=== PATIENT | male | born 1990 | race Two or more races ===

== ENCOUNTER 2020-11-02 05:53 | Emergency (ER) | payer OTHER ==
[~2020-11-02] VITALS: Ht 167.6 cm; Wt 65.0 kg
[2020-11-02] MEDS ORDERED: SODIUM CHLORIDE 0.9% 1,000ML IVBOLUS ONE (06:00)
[2020-11-02 06:34] LABS: BASOPHILS % (AUTO) 0 % (0-1); EOSINOPHILS % (AUTO) 0 % (1-7); LYMPHOCYTES % (AUTO) 10 % (22-44); MEAN CORPUSCULAR HEMOGLOBIN 29.7 pg (27.5-34.5); MEAN CORPUSCULAR HGB CONC 32.5 g/dL (33.2-36.2); MEAN PLATELET VOLUME 8.8 fL (7.4-10.4); MONOCYTES % (AUTO) 5 % (2-9); NEUTROPHILS % (AUTO) 85 % (42-75); PLATELET COUNT 309 x10^3/uL (130-400); RED BLOOD COUNT 5.29 x10^6/uL (4.38-5.82); RED CELL DISTRIBUTION WIDTH 14.9 % (9.4-14.8)
[2020-11-02 06:39] LABS: MD NO
[2020-11-02 06:42] LABS: ALANINE AMINOTRANSFERASE 26 U/L (12-78); ALBUMIN 4.3 g/dL (3.4-5.0); ANION GAP 17 mmol/L (5-15); CALCIUM 8.4 mg/dL (8.5-10.1); CHLORIDE 115 mmol/L (98-107); CREATININE 0.94 mg/dL (0.7-1.3)
[2020-11-02 06:44] LABS: ALKALINE PHOSPHATASE 93 U/L (45-117); BILIRUBIN,TOTAL 0.3 mg/dL (0.2-1.0); TOTAL PROTEIN 7.8 g/dL (6.4-8.2)
--- NOTE | 2020-11-02 06:52 | NUR ---
REPORT TO RICHARD CEDEÑO
--- NOTE | 2020-11-02 07:04 | NUR ---
Recived report from GALA Christianson. Pt sleeping in bed with fluid warmer running and covered in warm blankets. RITA Warmer in place.
[2020-11-02 07:29] LABS: ACETONE, SERUM Trace (Negative)
--- NOTE | 2020-11-02 07:45 | NUR ---
Warmed 1L LR bolus initiated per OCT. Med requested from pharmacy. Pt remains drowsy in bed, resp even and unlabored. Pt withdraws from painful stimuli and repositions self in bed. Continuous oxygen and BP monitors remain in place, all safety measures observed.
[2020-11-02 07:59] VITALS: BP 90/43
[2020-11-02] MEDS ORDERED: LACTATED RINGERS 1,000 ML IVBOLUS ONE (08:00)
[2020-11-02] MEDS ORDERED: THIAMINE 200 MG in SODIUM CHLORIDE 0.9% 50 ML IV ONE (08:00)
--- NOTE | 2020-11-02 08:00 | NUR ---
SENDY PA IN TO SEE PT
--- NOTE | 2020-11-02 08:06 | NUR ---
Pt arousable, A&O x3, Pt provided meal tray, encouraged to eat. Pt verbalizes understanding.
--- NOTE | 2020-11-02 08:34 | NUR ---
Pt consumed partial diet tray
--- NOTE | 2020-11-02 09:54 | NUR ---
pt able to contact brother for pick out hand. Brother is on his way.
== END 2020-11-02 10:35 | disposition home or self-care (01) ==
LOC: ED 08:09
DX: T68.XXXA Hypothermia, initial encounter (principal); E16.2 Hypoglycemia, unspecified; F10.220 Alcohol dependence with intoxication, uncomplicated; R94.31 Abnormal electrocardiogram [ECG] [EKG]; F17.290 Nicotine dependence, other tobacco product, uncomplicated; X31.XXXA Exposure to excessive natural cold, initial encounter; Y93.89 Activity, other specified; Y92.89 Other specified places as the place of occurrence of the external cause; Y99.8 Other external cause status; Y90.9 Presence of alcohol in blood, level not specified
CPT/HCPCS: 80053; 80320; 82010; 82800; 82962; 83690; 83735; 85025; 93005; 96361; 96365; 96366; 99291; J3411; J7030; J7120; 99284; G0480

== ENCOUNTER 2020-12-18 04:51 | Observation (INO) | payer SELFPAY ==
[~2020-12-18] VITALS: Ht 165.1 cm; Wt 61.4 kg
[2020-12-18] MEDS ORDERED: DIPH,PERTUSS(ACELL),TET VAC/PF 0.5 ML IM-VACC ONE ×2 (05:26→05:30)
[2020-12-18] MEDS ORDERED: LIDOCAINE-MPF 1%, 5ML ONE (05:46)
--- NOTE | 2020-12-18 05:50 | NUR ---
PT NOSE, FACE, HANDS, AND TORSO CLEANED UP WITH NORMAL SALINE. ERP REASSESSED, PT SET UP FOR SUTURES. AWAITING CT SCAN RESULTS
[2020-12-18] MEDS ORDERED: LIDOCAINE-MPF 1%, 5ML INFIL ONE (06:00)
--- NOTE | 2020-12-18 06:54 | NUR ---
Bedside report from GALA Oakley. Pt sleeping, rousable to verbal stimuli.
--- NOTE | 2020-12-18 06:54 | NUR ---
REPORT GIVEN TO GALA CLAY
[2020-12-18] MEDS ORDERED: SODIUM CHLORIDE 0.9% 1,000ML IVBOLUS ONE (07:00)
--- NOTE | 2020-12-18 07:53 | NUR ---
Fluids still infusing.
--- NOTE | 2020-12-18 09:19 | NUR ---
MD Martínez at bedside. Pt unable to make decision at this time. Will continue to monitor pt until pt able to make decision about surgery.
[2020-12-18] MEDS ORDERED: ACETAMINOPHEN 500 MG TABLET PO ONE (11:00)
--- NOTE | 2020-12-18 11:10 | NUR ---
Admitting MD at bedside. Pt denies wanting to file police report.
[2020-12-18] MEDS ORDERED: ONDANSETRON ODT 4 MG PO PRN (11:30)
[2020-12-18] MEDS ORDERED: ONDANSETRON 2MG/ML, 2ML IVPush PRN ×2 (11:30→16:30)
[2020-12-18] MEDS ORDERED: LACTATED RINGERS 1,000 ML IV SCH (11:30)
[2020-12-18] MEDS ORDERED: OXYcodone IR 5MG TABLET PO PRN (11:30)
[2020-12-18] MEDS ORDERED: IBUPROFEN 600 MG TABLET PO PRN (11:30)
[2020-12-18] MEDS ORDERED: ACETAMINOPHEN 325 MG TABLET PO PRN ×2 (11:30→16:30)
[2020-12-18 11:34] LABS: ALANINE AMINOTRANSFERASE 21 U/L (12-78); ALBUMIN 4.1 g/dL (3.4-5.0); ANION GAP 7 mmol/L (5-15); CALCIUM 8.1 mg/dL (8.5-10.1); CHLORIDE 113 mmol/L (98-107); CREATININE 0.65 mg/dL (0.7-1.3)
[2020-12-18 11:36] LABS: ALKALINE PHOSPHATASE 85 U/L (45-117); BASOPHILS % (AUTO) 1 % (0-1); BILIRUBIN,TOTAL 0.2 mg/dL (0.2-1.0); EOSINOPHILS % (AUTO) 0 % (1-7); LYMPHOCYTES % (AUTO) 17 % (22-44); MEAN CORPUSCULAR HEMOGLOBIN 29.6 pg (27.5-34.5); MEAN CORPUSCULAR HGB CONC 32.9 g/dL (33.2-36.2); MEAN PLATELET VOLUME 8.5 fL (7.4-10.4); MONOCYTES % (AUTO) 6 % (2-9); NEUTROPHILS % (AUTO) 76 % (42-75); PLATELET COUNT 349 x10^3/uL (130-400); RED BLOOD COUNT 5.05 x10^6/uL (4.38-5.82); RED CELL DISTRIBUTION WIDTH 14.5 % (9.4-14.8); TOTAL PROTEIN 7.3 g/dL (6.4-8.2)
[2020-12-18 11:37] LABS: INTERNATIONAL NORMALIZED RATIO 0.99 (0.93-1.1); PROTHROMBIN TIME 10.6 Seconds (9.6-11.5)
[2020-12-18 11:43] LABS: MD NO
[2020-12-18] MEDS ORDERED: SODIUM CHLORIDE 0.9% 1,000 ML IV ONE (12:30)
[2020-12-18] MEDS ORDERED: CHLORHEXIDINE 15 ML UDC ONE (15:51)
[2020-12-18] MEDS ORDERED: CHLORHEXIDINE 15 ML UDC PO ONE (16:00)
[2020-12-18] MEDS ORDERED: OXYMETAZOLINE NASAL SPRAY 0.05%,30ML ONE (16:09)
[2020-12-18] MEDS ORDERED: MUPIROCIN OINT 2%, 22GM ONE (16:09)
[2020-12-18] MEDS ORDERED: COCAINE TOPICAL SOLN 4%, 4ML ONE (16:09)
[2020-12-18] MEDS ORDERED: LIDOCAINE 1%, 20ML ONE (16:10)
[2020-12-18] MEDS ORDERED: EPINEPHRINE 1 MG/ML, 1ML ONE (16:10)
[2020-12-18] MEDS ORDERED: MIDAZOLAM 1 MG/ML, 2ML ONE (16:17)
[2020-12-18] MEDS ORDERED: FENTANYL PF 250 MCG/5ML ONE (16:17)
[2020-12-18] MEDS ORDERED: morphine SULFATE 10 MG/ML, 1ML IVPush PRN (16:30)
[2020-12-18] MEDS ORDERED: LABETALOL 5MG/ML, 20ML IV PRN (16:30)
[2020-12-18] MEDS ORDERED: hydrALAzine 20 MG/ML, 1ML IV PRN (16:30)
[2020-12-18] MEDS ORDERED: HYDROmorphone 1 MG/ML, 1ML INJ IVPush PRN (16:30)
[2020-12-18] MEDS ORDERED: FENTANYL PF 100 MCG/2ML IV PRN (16:30)
[2020-12-18] MEDS ORDERED: MEPERIDINE/PF 25MG/0.5ML IVPush PRN (16:30)
[2020-12-18] MEDS ORDERED: OXYcodone 5 MG/5 ML ORAL.SOL UDC PO PRN (16:30)
[2020-12-18] MEDS ORDERED: PROPOFOL 10 MG/ML, 20ML ONE (16:52)
[2020-12-18] MEDS ORDERED: CEFAZOLIN 1,000 MG ONE (16:52)
[2020-12-18] MEDS ORDERED: NEOSTIGMINE 1 MG/ML, 10ML ONE (16:52)
[2020-12-18 18:21] VITALS: BP 109/71
[2020-12-18] MEDS ORDERED: NAPROXEN 500 MG TABLET PO SCH (21:00)
== END 2020-12-18 21:17 | disposition home or self-care (01) ==
LOC: ED 05:20 → SUATTDRO 10:58 → EDIP 10:59 → INTOOBSV 10:59 → 4NE 14:49
PROVIDERS: ADMIT Family Medicine; ATTEND Family Medicine
DX: S02.2XXA Fracture of nasal bones, initial encounter for closed fracture (principal); Z20.822 Contact with and (suspected) exposure to COVID-19; S01.21XA Laceration without foreign body of nose, initial encounter; F10.129 Alcohol abuse with intoxication, unspecified; F12.90 Cannabis use, unspecified, uncomplicated; G92 Toxic encephalopathy; J34.2 Deviated nasal septum; Z23 Encounter for immunization; Z79.899 Other long term (current) drug therapy; V18.4XXA Pedal cycle driver injured in noncollision transport accident in traffic accident, initial encounter; Y04.0XXA Assault by unarmed brawl or fight, initial encounter; Y93.55 Activity, bike riding; Y92.89 Other specified places as the place of occurrence of the external cause
CPT/HCPCS: 12011; 21315; 36415; 70450; 70486; 71045; 80053; 85025; 85610; 87635; 90471; 90715; 93005; 96360; 99285; G0378; J0171; J0690; J2250; J2704; J2710; J3010; J3490; J7030

== ENCOUNTER 2021-01-02 20:12 | Emergency (ER) | payer OTHER ==
[~2021-01-02] VITALS: Ht 165.1 cm; Wt 59.7 kg
[2021-01-02 20:54] VITALS: BP 112/66
--- NOTE | 2021-01-02 20:54 | NUR ---
Patient/Caregiver given discharge instructions and they have confirmed that they understand the instructions. Patient ambulatory with steady gait.
== END 2021-01-02 21:13 | disposition home or self-care (01) ==
LOC: ED 21:00
DX: S01.21XD Laceration without foreign body of nose, subsequent encounter (principal); X58.XXXD Exposure to other specified factors, subsequent encounter
CPT/HCPCS: 99281